=== PATIENT | male | born 1950 | race Hispanic/Latino ===

== ENCOUNTER 2022-03-20 14:35 | Emergency (ER) | payer BC, OTHER ==
--- OUTSIDE RECORDS SUMMARY | 2022-03-20 14:38 | XMS REPORT | Continuity of Care Document ---
:1950 Author Organization [facility] t Address [address] [place] [address] Care Team Providers Name Role Phone FELICITA BLACKMON Primary Care Physician Unavailable LAQUITA PEARSON Attending Clinician Unavailable Laquita Pearson MD Attending Clinician [phone] Doctor Unassigned, Sylvia Attending Clinician Unavailable Payers Payer Name Policy Type Policy Number Effective Date Expiration Date [facility] [place] PART A [id number] 2017 \T\ B 00:00:00 Problems Condition Condition Condition Status Onset Resolution Last Treating Co mments Source Name Details Category Date Date Treatment Clinician Date Open Open Disease Active Univers fracture fracture -19 ity of of left of left 00:00: [place] distal distal 00 Medical femur femur Branch Allergies, Adverse Reactions, Alerts Allergy Allergy Status Severity Reaction(s) Onset Inactive Treating Comm ents Source Name Type Date Date Clinician NO KNOWN Drug Active Univers ALLERGIE Class ity of S [facility] Social History Social Habit Start Date Stop Date Quantity Comments Source Exposure to 2021-04-25 2021-05-25 Not sure University SARS-CoV-2 00:00:00 12:26:00 [facility] [place] Tobacco use and 2019-08-29 2019-08-29 Smokeless tobacco Un iversity of exposure 00:00:00 00:00:00 non-user [facility] Sex Ass[birth year] Universit y of 00:00:00 00:00:00 [facility] Smoking Status Start Date Stop Date Source Never smoked tobacco [facility] Medications Ordered Filled Start Stop Current Ordering Indication Dosage Frequency Signature Comments Components Source Medication Medication Date Date Medication? Clinician (SIG) Name Name methocarbam 2020-0 Yes [id number] 500mg Take 1 Univers ol 500 mg 5-26 [id number] tablet by ity of tablet 00:00: mouth [place] 00 every 8 Medical (eight) Branch hours as needed for Pain (scale 4-6) or Pain (scale 7-10) (Muscle spasms). gabapentin 2020-0 Yes [id number] 300mg Take 1 Univers 300 mg 5-26 [id number] capsule by ity o f capsule 00:00: mouth 3 00 (three) Medical times Branch daily as needed for Pain (scale 4-6) or Pain (scale 7-10). methocarbam 2020-0 Yes [id number] 500mg Take 1 Univers ol 500 mg 5-26 [id number] tablet by ity of tablet 00:00: mouth [place] every 8 Medical (eight) Branch hours as needed for Pain (scale 4-6) or Pain (scale 7-10) (Muscle spasms). gabapentin 2020-0 Yes [id number] 300mg Take 1 Univers 300 mg 5-26 [id number] capsule by ity o f capsule 00:00: mouth 3 00 (three) Medical times Branch daily as needed for Pain (scale 4-6) or Pain (scale 7-10). acetaminoph 2020-0 Yes [id number] 1{tbl} Take 1 Univers en-codeine 3-24 [id number] tablet by it y of (TYLENOL-CO 00:00: mouth [place] DEINE #3) 00 every 6 Medical 300-30 mg (six) Branch tablet hours as needed for Pain (scale 4-6) or Pain (scale 7-10). acetaminoph 2020-0 Yes [id number] 1{tbl} Take 1 Univers en-codeine 3-24 [id number] tablet by it y of (TYLENOL-CO 00:00: mouth [place] DEINE #3) 00 every 6 Medical 300-30 mg (six) Branch tablet hours as needed for Pain (scale 4-6) or Pain (scale 7-10). HYDROcodone 2020-0 Yes [id number] 1{tbl} Take 1 Univers -acetaminop 3-07 [id number] tablet by i ty of hen 5-325 00:00: mouth [place] mg tablet 00 every 8 Medical (eight) Branch hours as needed for Pain (scale 7-10). methocarbam 2020-0 Yes [id number] 500mg Take 1 Univers ol 500 mg 3-07 [id number] tablet by ity of tablet 00:00: mouth [place] 00 every 8 Medical (eight) Branch hours as needed for Pain (scale 7-10) (muscle spasms). HYDROcodone 2020-0 Yes [id number] 1{tbl} Take 1 Univers -acetaminop 3-07 [id number] tablet by i ty of hen 5-325 00:00: mouth [place] mg tablet 00 every 8 Medical (eight) Branch hours as needed for Pain (scale 7-10). methocarbam 2020-0 Yes [id number] 500mg Take 1 Univers ol 500 mg 3-07 [id number] tablet by ity of tablet 00:00: mouth [place] 00 every 8 Medical (eight) Branch hours as needed for Pain (scale 7-10) (muscle spasms). cephALEXin 2020-0 Yes 500mg Take 1 Univ ers (KEFLEX) 2-27 capsule by ity o f 500 mg 00:00: mouth 4 [place] capsule 00 (four) Medical times Branch daily. cephALEXin 2020-0 Yes 500mg Take 1 Univ ers (KEFLEX) 2-27 capsule by ity o f 500 mg 00:00: mouth 4 [place] capsule 00 (four) Medical times Branch daily. docusate 2020-0 Yes [id number] 100mg Take 1 Univers 100 mg 2-19 [id number] capsule by ity o f capsule 00:00: mouth [place] 00 every 12 Medical (twelve) Branch hours. docusate 2020-0 Yes [id number] 100mg Take 1 Univers 100 mg 2-19 [id number] capsule by ity o f capsule 00:00: mouth [place] 00 every 12 Medical (twelve) Branch hours. HYDROcodone 2020-0 Yes [id number] 1{tbl} Take 1 Univers -acetaminop 2-10 [id number] tablet by i ty of hen 5-325 00:00: mouth [place] mg tablet 00 every 6 Medical (six) Branch hours as needed for Pain (scale 7-10). HYDROcodone 2020-0 Yes [id number] 1{tbl} Take 1 Univers -acetaminop 2-10 [id number] tablet by i ty of hen 5-325 00:00: mouth [place] mg tablet 00 every 6 Medical (six) Branch hours as needed for Pain (scale 7-10). Procedures Procedure Date / Time Performing Clinician Source Performed AUTHORIZATION FOR 2021-06-15 05:01:00 Doctor Rossy, [facility] RELEASE OF PHI Name Medical Branch Encounters Start End Encounter Admission Attending Care Care Encounter Source Date/Time Date/Time Type Type Clinicians Facility Department ID 2022-03-28 2022-03-28 [facility] [id number] Univers 15:20:00 15:20:00 LAQUITA [id number] ity [facility] 2022-03-21 2022-03-21 Outpatient Lana PEARSON [facility] [id number] Univers 11:00:00 11:00:00 LAQUITA [id number] ity [facility] 2022-03-21 2022-03-21 [facility] [id number] Univers 11:00:00 [facility]:00[facility]10[facility]30 2021-10-30 [id number] Univers 00:00:00 00:00:00 Laquita SPECIALTY [id number] ity [facility] [id number] [facility] AT [phone] [place] [address] 2021-06-15 2021-06-15 Orders Doctor FIGUEROA [id number] Univers 00:00:00 00:00:00 Only Unassigned, ANNE [id number] ity of Sylvia [facility] [id number] Stevie as [id number] [facility] 009 Branch Results This patient has no known results.
--- NOTE | 2022-03-20 16:18 | RAD REPORT ---
EXAM DESCRIPTION: RAD - Chest Single View - 03/20/2022 4:09 pm CLINICAL HISTORY: tachycardia COMPARISON: None TECHNIQUE: AP portable chest image was obtained 03/20/2022 4:09 pm . FINDINGS: No focal mass or consolidation. Interstitial pattern is prominent believed to be a baselin e pattern accentuated by portable technique and body habitus affects. Significant failure or volume o verload are not suspected. Hilar regions are not outside of normal range for exam limitations. Heart and vasculature are normal. No measurable pleural effusion and no pneumothorax. No acute bony abnormality seen. No acute aortic findings suspected. IMPRESSION: No acute cardiopulmonary process.
--- NOTE | 2022-03-20 16:56 | RAD REPORT ---
EXAM DESCRIPTION: US - Extremity Venous Uni Ltd - 03/20/2022 4:46 pm CLINICAL HISTORY: redness, edema COMPARISON: None. TECHNIQUE: Real-time sonographic evaluation of the left lower extremity deep venous system was perfo rmed. FINDINGS: Normal compressibility, flow augmentation, phasic flow and spontaneous flow are identified in the left lower extremity common femoral, superficial femoral, popliteal and posterior tibial vein s. No intraluminal filling defects seen. IMPRESSION: No DVT in the left lower extremity.
[2022-03-20 17:32] LABS: Absolute Lymphocytes (CBC) 1.4 K/uL (0.7-4.9); Hematocrit 38.3 % (39.6-49.0); Lymphocytes % 16.2 % (15.3-44.8); MCV 94.7 fL (80-100); MPV 7.8 fL (7.6-11.3); RBC Red Blood Cell Count 4.04 M/uL (4.33-5.43)
[2022-03-20 17:40] LABS: SARS-CoV-2 Antigen Rapid Res Negative (Negative)
[2022-03-20 17:46] LABS: Troponin High Sensitivity 5.6 pg/mL (<58.9)
--- NOTE | 2022-03-20 17:57 | EDPHYS ---
Physician Documentation [facility] Name: Chang Nelson Age: 71 yrs Sex: Male : 1950 Arrival Date: 03/20/2022 Time: 14:40 Bed 27 Private MD: ED Physician Silvano Lindo HPI: 03/20 17:00 This 71 yrs old Male presents to ER via Ambulatory with complaints of Leg Pain.snw 17:00 The patient presents with swelling, tenderness. The complaints affect the left sampson. snw Context: The problem was sustained at an unknown site, resulted from an unknown cause, the patient can fully bear weight, the patient is able to ambulate. Onset: The symptoms/episode began/occurred suddenly, today. Associated signs and symptoms: Pertinent positives: swelling, warmth, of the left sampson. Severity of symptoms: At their worst the symptoms were moderate. The patient has not experienced similar symptoms in the past. The patient has been recently seen by a physician: the patient's primary care provider, with different complaint(s), pt seeing ortho Dr. Uribe tomorrow. Historical: - Allergies: 14:50 No Known Allergies; eh3 - Home Meds: 14:58 lisinopril 40 mg Oral tab 1 tab once daily [Active]; metformin 1,000 mg Oral tab 1 tab eh3 2 times per day [Active]; atorvastatin 20 mg oral tab 1 tab once daily [Active]; pioglitazone 45 mg oral tab 1 tab once daily [Active]; hydrochlorothiazide 25 mg Oral tab 1 tab once daily [Active]; Jeffrey Chewable Aspirin 81 mg oral chew 1 tab once daily [Active]; Trecibia 18 units per day [Active]; montelukast 10 mg oral tab 1 tab once daily [Active]; - PMHx: 14:50 femur fracture; Diabetes mellitus; Hypertensive disorder; eh3 - PSHx: 14:50 femur repair; eh3 - Immunization history:: Adult Immunizations up to date. - Social history:: Smoking status: Patient denies any tobacco usage or history of. Patient uses alcohol, on a daily basis. ROS: 16:59 Constitutional: Negative for fever, chills, and weight loss, Eyes: Negative for injury, snw pain, redness, and discharge, ENT: Negative for injury, pain, and discharge, Neck: Negative for injury, pain, and swelling, Cardiovascular: Negative for chest pain, palpitations, and edema, Respiratory: Negative for shortness of breath, cough, wheezing, and pleuritic chest pain, Abdomen/GI: Negative for abdominal pain, nausea, vomiting, diarrhea, and constipation, Back: Negative for injury and pain, : Negative for injury, bleeding, discharge, and swelling, Skin: Negative for injury, rash, and discoloration, Neuro: Negative for headache, weakness, numbness, tingling, and seizure, Psych: Negative for depression, anxiety, suicide ideation, homicidal ideation, and hallucinations. 16:59 MS/extremity: Positive for swelling, tenderness, of the left sampson. Exam: 16:58 Constitutional: This is a well developed, well nourished patient who is awake, alert, snw and in no acute distress. Head/Face: Normocephalic, atraumatic. Eyes: Pupils equal round and reactive to light, extra-ocular motions intact. Lids and lashes normal. Conjunctiva and sclera are non-icteric and not injected. Cornea within normal limits. Periorbital areas with no swelling, redness, or edema. ENT: Nares patent. No nasal discharge, no septal abnormalities noted. Tympanic membranes are normal and external auditory canals are clear. Oropharynx with no redness, swelling, or masses, exudates, or evidence of obstruction, uvula midline. Mucous membranes moist. Neck: Trachea midline, no thyromegaly or masses palpated, and no cervical lymphadenopathy. Supple, full range of motion without nuchal rigidity, or vertebral point tenderness. No Meningismus. Chest/axilla: Normal chest wall appearance and motion. Nontender with no deformity. No lesions are appreciated. Cardiovascular: Regular rate and rhythm with a normal S1 and S2. No gallops, murmurs, or rubs. Normal PMI, no JVD. No pulse deficits. Respiratory: Lungs have equal breath sounds bilaterally, clear to auscultation and percussion. No rales, rhonchi or wheezes noted. No increased work of breathing, no retractions or nasal flaring. Abdomen/GI: Soft, non-tender, with normal bowel sounds. No distension or tympany. No guarding or rebound. No evidence of tenderness throughout. Back: No spinal tenderness. No costovertebral tenderness. Full range of motion. Neuro: Awake and alert, GCS 15, oriented to person, place, time, and situation. Cranial nerves II-XII grossly intact. Motor strength 5/5 in all extremities. Sensory grossly intact. Cerebellar exam normal. Normal gait. 16:58 Musculoskeletal/extremity: ROM: no acute changes, Pulses: are normal with no appreciated deficits, Sensation intact. 16:58 Skin: Appearance: normal except for affected area, cellulitis, that is moderate, on the left sampson. 17:30 ECG was reviewed by the Attending Physician. snw Vital Signs: 14:46 BP 148 / 83; Pulse 119; Resp 20; Temp 97.0(TE); Pulse Ox 98% on R/A; Weight 101.6 kg; eh3 Height 5 ft. 6 in. (167.64 cm); Pain 6/10; 20:57 BP 139 / 79; Pulse 87; Resp 18; Pulse Ox 100% on R/A; sm5 14:46 Body Mass Index 36.15 (101.60 kg, 167.64 cm) 3 MDM: 15:22 Patient medically screened. snw 17:58 Data reviewed: vital signs, nurses notes, lab test result(s), radiologic studies. Data snw interpreted: Pulse oximetry: on room air is 98 %. Interpretation: normal. Counseling: I had a detailed discussion with the patient and/or guardian regarding: the historical points, exam findings, and any diagnostic results supporting the discharge/admit diagnosis, the presence of at least one elevated blood pressure reading (>120/80) during this emergency department visit, lab results, radiology results, the need for outpatient follow up, to return to the emergency department if symptoms worsen or persist or if there are any questions or concerns that arise at home. Special discussion: I discussed in detail with the patient the higher chance of wound infection based on his presenting history. Based on the history and exam findings, there is no indication for further emergent testing or inpatient evaluation. I discussed with the patient/guardian the need to see the orthopedic surgeon for further evaluation of the symptoms. I discussed with the patient/guardian the need to see the primary care provider for further evaluation of the symptoms. 03/20 15:23 Order name: Basic Metabolic Panel; Complete Time: 17:49 snw 03/20 15:23 Order name: CBC with Diff; Complete Time: 17:44 snw 03/20 15:23 Order name: US Extremity Venous Unilateral Ltd; Complete Time: 16:58 snw 03/20 15:23 Order name: NT PRO-BNP; Complete Time: 17:49 snw 03/20 15:23 Order name: Troponin HS; Complete Time: 17:49 snw 03/20 16:51 Order name: SARS RAPID; Complete Time: 17:44 snw 03/20 15:23 Order name: XRAY Chest (1 view); Complete Time: 16:21 snw 03/20 15:23 Order name: EKG; Complete Time: 15:26 snw 03/20 15:23 Order name: Cardiac monitoring; Complete Time: 17:36 snw 03/20 15:23 Order name: EKG - Nurse/Tech; Complete Time: 17:36 snw 03/20 15:23 Order name: IV Saline Lock; Complete Time: 17:18 snw 03/20 15:23 Order name: Labs collected and sent; Complete Time: 17:19 snw 03/20 15:23 Order name: O2 Per Protocol; Complete Time: 17:27 snw 03/20 15:23 Order name: O2 Sat Monitoring; Complete Time: 17:27 snw EC:30 Rate is 99 beats/min. Rhythm is regular. QRS [place] is Normal. [place] interval is normal. QRS snw interval is normal. QT interval is normal. Q waves are Present. T waves are Normal. No ST changes noted. Clinical impression: NSR w/ Non-specific ST/T Changes. Administered Medications: 18:03 Drug: Aspirin Chewable Tablet 324 mg Route: PO; ap3 18:20 Follow up: Response: No adverse reaction iw 18:03 Drug: vancoMYCIN 1 grams Route: IVPB; Infused Over: 2 hrs; Site: left antecubital; ap3 20:56 Follow up: Response: No adverse reaction; IV Status: Completed infusion; IV Intake: sm5 200ml Disposition Summary: 03/20/22 17:56 Discharge Ordered Location: Home snw Condition: Stable snw Diagnosis - Cellulitis of left lower limb snw Followup: snw - With: Emergency Department - When: As needed - Reason: Worsening of condition Followup: snw - With: Private Physician - When: Tomorrow - Reason: Recheck today's complaints, Continuance of care Discharge Instructions: - Discharge Summary Sheet snw - Cellulitis, Adult snw Forms: - Medication Reconciliation Form snw - Thank You Letter snw - Antibiotic Education snw - Prescription Opioid Use snw Prescriptions: - mupirocin 2 % Topical ointment - apply 1 application by TOPICAL route 3 times per day; 50 gram; Refills: 0, snw Product Selection Permitted - Cephalexin 500 mg Oral Capsule - take 1 capsule by ORAL route every 8 hours for 10 days; 30 capsule; Refills: 0, snw Product Selection Permitted Signatures: Dispatcher [employer] EDMS Sumaya Yusuf, [employer]-C [employer]ARD[employer]-Csnw Leeanna Manzano RN RN ap3 Simi Benavides RN RN 3 Page Talavera RN [employer] RN sm5
--- NOTE | 2022-03-20 17:57 | ER ---
Nurse's Notes [facility] Name: Chang Nelson Age: 71 yrs Sex: Male : 1950 Arrival Date: 03/20/2022 Time: 14:40 Bed 27 Private MD: Diagnosis: Cellulitis of left lower limb Presentation: 03/20 14:46 Chief complaint: Patient states: leg pain, redness, swelling on left lower leg. 3 Coronavirus screen: Vaccine status: Patient reports receiving the 2nd dose of the covid vaccine. Ebola Screen: No symptoms or risks identified at this time. Initial Sepsis Screen: Does the patient meet any 2 criteria? No. Patient's initial sepsis screen is negative. Does the patient have a suspected source of infection? No. Patient's initial sepsis screen is negative. Risk Assessment: Do you want to hurt yourself or someone else? Patient reports no desire to harm self or others. Onset of symptoms was March 20, 2022. 14:46 Method Of Arrival: Ambulatory [facility] 14:46 Acuity: LUANN 3 eh3 Triage Assessment: 14:50 General: Appears in no apparent distress. uncomfortable, Behavior is calm, cooperative, eh3 appropriate for age. Pain: Complains of pain in left sampson Pain does not radiate. Pain currently is 6 out of 10 on a pain scale. at worst was 7 out of 10 on a pain scale. Quality of pain is described as pressure, tender, Pain began 2-3 days ago. Is intermittent, Alleviated by rest, Aggravated by increased activity, weight bearing. Neuro: Level of Consciousness is awake, alert, obeys commands, Oriented to person, place, time, situation. Cardiovascular: Capillary refill < 3 seconds Patient's skin is warm and dry. Respiratory: Airway is patent Respiratory effort is even, unlabored. Musculoskeletal: Circulation, motion, and sensation intact. Range of motion: intact in all extremities, Swelling present in left sampson. Historical: - Allergies: 14:50 No Known Allergies; eh3 - Home Meds: 14:58 lisinopril 40 mg Oral tab 1 tab once daily [Active]; metformin 1,000 mg Oral tab 1 tab eh3 2 times per day [Active]; atorvastatin 20 mg oral tab 1 tab once daily [Active]; pioglitazone 45 mg oral tab 1 tab once daily [Active]; hydrochlorothiazide 25 mg Oral tab 1 tab once daily [Active]; Jeffrey Chewable Aspirin 81 mg oral chew 1 tab once daily [Active]; Trecibia 18 units per day [Active]; montelukast 10 mg oral tab 1 tab once daily [Active]; - PMHx: 14:50 femur fracture; Diabetes mellitus; Hypertensive disorder; eh3 - PSHx: 14:50 femur repair; eh3 - Immunization history:: Adult Immunizations up to date. - Social history:: Smoking status: Patient denies any tobacco usage or history of. Patient uses alcohol, on a daily basis. Screenin:57 Abuse screen: Denies threats or abuse. Denies injuries from another. Nutritional sm5 screening: No deficits noted. Tuberculosis screening: No symptoms or risk factors identified. Fall Risk None identified. Assessment: 19:35 General: Appears in no apparent distress. Behavior is cooperative. Pain: Complains of sm5 pain in left leg. Neuro: Level of Consciousness is awake, alert, obeys commands, Oriented to person, place, time, situation. Cardiovascular: Patient's skin is warm and dry. Derm: Skin is red, L leg. Vital Signs: 14:46 BP 148 / 83; Pulse 119; Resp 20; Temp 97.0(TE); Pulse Ox 98% on R/A; Weight 101.6 kg; eh3 Height 5 ft. 6 in. (167.64 cm); Pain 6/10; 20:57 BP 139 / 79; Pulse 87; Resp 18; Pulse Ox 100% on R/A; sm5 14:46 Body Mass Index 36.15 (101.60 kg, 167.64 cm) eh3 ED Course: 14:40 Patient arrived in ED. rg4 14:50 Triage completed. eh3 14:50 Arm band placed on left wrist. eh3 15:08 Sumaya Yusuf FNP-C is [facility]. snw 15:08 Silvano Lindo MD is Attending Physician. snw 16:10 XRAY Chest (1 view) In Process Unspecified. EDMS 16:48 US Extremity Venous Unilateral Ltd In Process Unspecified. EDMS 16:53 Page Talavera, RN is Primary Nurse. iw 17:17 Initial lab(s) drawn, by me, sent to lab. Inserted saline lock: 22 gauge in left jw7 antecubital area, using aseptic technique. Blood collected. Missed attempt(s): 20 gauge in left antecubital area. Bleeding controlled, band aid applied, catheter tip intact. 17:18 Basic Metabolic Panel Sent. jw7 17:18 CBC with Diff Sent. jw7 17:19 NT PRO-BNP Sent. jw7 17:19 Troponin HS Sent. jw7 17:21 COVID swab sent to lab. jw7 17:44 EKG done, by ED staff, reviewed by Sumaya ZENDEJAS. jw7 18:04 Primary Nurse role handed off by Page Talavera, RN ap3 18:04 Leeanna Manzano, RN is Primary Nurse. ap3 20:57 Patient has correct armband on for positive identification. Bed in low position. Call sm5 light in reach. Side rails up X2. 20:57 No provider procedures requiring assistance completed. IV discontinued, intact, sm5 bleeding controlled, No redness/swelling at site. Pressure dressing applied. Administered Medications: 18:03 Drug: Aspirin Chewable Tablet 324 mg Route: PO; ap3 18:20 Follow up: Response: No adverse reaction iw 18:03 Drug: vancoMYCIN 1 grams Route: IVPB; Infused Over: 2 hrs; Site: left antecubital; ap3 20:56 Follow up: Response: No adverse reaction; IV Status: Completed infusion; IV Intake: sm5 200ml Medication: 20:57 VIS not applicable for this client. sm5 Intake: 20:56 IV: 200ml; Total: 200ml. 5 Outcome: 17:56 Discharge ordered by MD. snw 20:57 Discharged to home ambulatory, with significant other. 5 20:57 Condition: stable 20:57 Discharge instructions given to patient, significant other, Instructed on discharge instructions, follow up and referral plans. medication usage, Demonstrated understanding of instructions, follow-up care, medications, Prescriptions given X 2. 20:57 Patient left the ED. 5 Signatures: Dispatcher [employer] EDMS Sumaya Yusuf FNP-C FNP-Page Shaver, RN Paola Foy rg4 Leeanna Manzano RN RN ap3 [employer] RN RN 5 Debby Pitt jw7 Simi Benavides, RN RN 3
[2022-03-20] MEDS ORDERED: ASPIRIN 81 MG CHEWABLE TABLET ONE (18:01)
[2022-03-20] MEDS ORDERED: VANCOMYCIN 1 GM/VIAL ONE (18:02)
[2022-03-20] MEDS ORDERED: NA CHLORIDE 0.9% 250 ML ONE (18:02)
[2022-03-21 00:26] VITALS: TEMP 97
[2022-03-21 00:28] VITALS: BP 139/79; O2SAT 100
--- NOTE | 2022-03-21 14:33 | EKG ---
Test Date: 2022-03-20 Test Time: 17:36:13 Crew Attendant: CADY MEASUREMENT RESULTS: Intervals: Rate: 99 RI: 168 QRSD: 92 QT: 352 QTc: 451 [place]: P: 26 RI: 168 QRS: -20 T: 48 INTERPRETIVE STATEMENTS: Normal sinus rhythm Septal infarct, age undetermined Abnormal ECG No previous ECG available for comparison Electronically Signed On 03-21-22 14:30:41 CDT by Dustin Melendez
== END 2022-03-20 20:57 | disposition home or self-care (01) ==
LOC: ER 14:35
DX: L03.116 Cellulitis of left lower limb (principal); E11.9 Type 2 diabetes mellitus without complications; I10 Essential (primary) hypertension; Z79.82 Long term (current) use of aspirin
CPT/HCPCS: 85025; 80048; 36415; 84484; 83880; 71045; 93971; 87811; J3370; J7050; 93005; 96365; 96366; 99284